=== PATIENT | female | born 1990 | race Caucasian/White ===

== ENCOUNTER 2017-09-15 17:19 | Emergency (ER) | payer SELFPAY ==
[~2017-09-15] VITALS: Ht 170.2 cm; Wt 68.5 kg
[~2017-09-15 17:19] MED LIST: CEPH-376 PO; DOXY100C2 PO; HYDR-882 PO; SULF-169 PO
[2017-09-15 17:30] VITALS: BP 130/87
== END 2017-09-15 18:20 | disposition home or self-care (01) ==
LOC: ED 18:00
DX: L02.413 Cutaneous abscess of right upper limb (principal); L03.113 Cellulitis of right upper limb
CPT/HCPCS: 99283